=== PATIENT | female | born 1955 | race Caucasian/White ===

== ENCOUNTER 2018-02-04 21:19 | Inpatient (IN) | payer BC, SELFPAY ==
[2018-02-04 23:17] LABS: Troponin I Less than 0.010 ng/mL (< 0.028)
[2018-02-05] MEDS ORDERED: Ondansetron HCl/PF 4 MG/2 ML Vial IVP PRN (00:55)
[2018-02-05] MEDS ORDERED: Ondansetron ODT 4 MG TAB SL PRN (00:55)
[2018-02-05] MEDS ORDERED: Acetaminophen 325 MG TAB PO PRN ×2 (00:55→15:30)
[2018-02-05 01:26] VITALS: BMI 24.9
[2018-02-05 02:04] LABS: Troponin I Less than 0.010 ng/mL (< 0.028)
[2018-02-05] MEDS ORDERED: Fioricet 325/50/40 mg Tablet PO PRN (05:05)
[2018-02-05] MEDS ORDERED: Calcium Carbonate 500 MG ChewTAB PO PRN (15:30)
[2018-02-05] MEDS ORDERED: Senokot 8.6 MG TAB PO PRN (15:30)
[2018-02-05] MEDS ORDERED: Mag-Al 1200 mg/1200 mg/30 ML UDCUP PO PRN (15:30)
[2018-02-05] MEDS ORDERED: Nitroglycerin 0.4 MG TAB (25 Tab Bottle) PO PRN (15:33)
[2018-02-05] MEDS ORDERED: cloNIDine 0.1 MG TAB PO PRN (15:33)
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
[2018-02-05] MEDS: Budesonide 0.5 MG/2 ML NEB INH SCH (18:11)
[2018-02-05] MEDS: Docusate 100 MG CAP PO SCH (21:00)
[2018-02-05] MEDS: Famotidine 20 MG TAB PO SCH (21:00)
[2018-02-05] MEDS: Fioricet 325/50/40 mg Tablet PO PRN (21:21)
[2018-02-06 05:49] LABS: #Basophils 0.1 thou/uL (0.0-0.2); #Eosinphils 0.1 thou/uL (0.0-0.7); #Lymphocytes 1.2 thou/uL (1.20-3.40); #Neutrophils 6.6 thou/uL (1.40-6.50); %Basophils 1.3 % (0.0-1.0); %Eosinophils 1.4 % (0.0-10.0); %Lymphocytes 13.2 % (21.0-51.0); %Monocytes 10.7 % (0.0-10.0); %Neutrophils 73.4 % (42.0-75.0); Hemoglobin 13.8 g/dL (12.0-16.0); Mean Corpuscular HGB CONC 31.8 g/dL (32.0-36.0); Mean Corpuscular Hemoglobin 29.5 pg (27.0-31.0); Mean Corpuscular Volume 92.7 fL (78.0-98.0); Mean Platelet Volume 7.5 fL (7.4-10.4); Platelet Count 287 thou/uL (130-400); RBC Distribution Width 11.9 % (11.5-14.5); Red Blood Cell (RBC) Count 4.67 mill/uL (4.20-5.40)
[2018-02-06 05:59] LABS: ALT (SGPT) 24 U/L (8-55); AST (SGOT) 12 U/L (5-34); Albumin 3.6 g/dL (3.4-4.8); Alkaline Phosphatase 225 U/L (40-150); Anion Gap 12 mmol/L (10-20); BUN (Urea Nitrogen) 22 mg/dL (9.8-20.1); Bilirubin, Total 0.4 mg/dL (0.2-1.2); Calc. Creatinine Clearance 68 mL/min (70-130); Calcium 8.9 mg/dL (7.8-10.44); Carbon Dioxide 30 mmol/L (23-31); Chloride 100 mmol/L (98-107); Estimated GFR-MDRD 89; Globulin 2.5 g/dL (2.4-3.5); Glucose 108 mg/dL (80-115); Magnesium 1.8 mg/dL (1.6-2.6); Potassium 3.8 mmol/L (3.5-5.1); Protein, Total 6.1 g/dL (6.0-8.3); Sodium 138 mmol/L (136-145)
[2018-02-06] MEDS: Fioricet 325/50/40 mg Tablet PO PRN (06:20)
[2018-02-06] MEDS: Budesonide 0.5 MG/2 ML NEB INH SCH ×2 (06:29→18:56)
[2018-02-06] MEDS: Docusate 100 MG CAP PO SCH ×2 (08:33→20:46)
[2018-02-06] MEDS: Enoxaparin Sodium 40 MG/0.4 ML SYRINGE SC SCH (08:33)
[2018-02-06] MEDS: Famotidine 20 MG TAB PO SCH ×2 (08:35→20:46)
[2018-02-06] MEDS ORDERED: Aspirin 325 MG TAB PO SCH (09:00)
--- NOTE | 2018-02-06 12:51 | CON ---
DATE OF CONSULTATION: 02/06/2018 CONSULTING PHYSICIAN: Dr. Zuleta REASON FOR CONSULTATION: Hypoxemia. HISTORY OF PRESENT ILLNESS: Ms. Perdue is a 62-year-old who lives in [place]. 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 She began having extreme shortness of breath 2 days ago. She says that it was worse than her usual baseline shortness of breath. She was taken to the [facility] and was found to be hypoxic with room air O2 sats in the 70s. She was placed on 2 lit ers and subsequently brought to this facility. She denies any cough or congestion. She is originall y from [facility]. She was hospitalized there several years ago and told that she probably had [place] PD. She has been living in [place] for several years since then. She smoked heavily up until 3 years ago when she quit. She uses a Ventolin metered dose inhaler at home. She has no history of pulmonary fibrosis or pulmonary emboli. She does have significant neurofibroma tosis of the skin and she says she has been told she may have lung involvement in the past. PAST MEDICAL HISTORY: 1. Migraine headaches. 2. Neurofibromatosis. 3. Right breast cancer. 4. Cervical cancer. 5. Scoliosis with extensive chest deformity. PAST SURGICAL HISTORY: 1. Right breast lymph node dissection 2. Cholecystectomy. 3. Tubal ligation. 4. Cervical cancer surgery. ALLERGIES: PENICILLIN. MEDICATIONS PRIOR TO ADMISSION: Ventolin, Fioricet, Aleve, ibuprofen. SOCIAL HISTORY: Smoking history as outlined above. Does not smoke currently, does not use alcohol, does not use illicit drugs. She is . FAMILY MEDICAL HISTORY: Unknown as she is adopted. REVIEW OF SYSTEMS: Twelve point review of systems otherwise negative. PHYSICAL EXAMINATION: VITAL SIGNS: O2 sat was 93% on 1.5 liters, respirations 16, pulse 84, blood pressure 117/55, tempera ture 98.3. GENERAL: She is awake and alert, in no distress. SKIN: Remarkable for neurofibromas over almost every aspect of her skin. HEENT: Otherwise, unremarkable. NECK: Without adenopathy or JVD. CHEST: Chest has extensive scoliotic deformity. She has crackles in both bases of her lungs. CARDIOVASCULAR: S1, S2 regular, without murmur. ABDOMEN: Soft, nontender. EXTREMITIES: No clubbing, cyanosis, or edema. LABORATORY DATA: Sodium 138, potassium 3.8, chloride 100, CO2 30, BUN 22, creatinine 0.6, glucose 10 8, white blood cell count 9, hematocrit 43.3, platelet count 287. I reviewed her CT in detail. I do not see any evidence of pulmonary fibrosis. She does have some em physematous changes. She has 2 lymph nodes, 1 in the right peritracheal area, 1 in the right hilum b oth less than 2 cm in size. ASSESSMENT: 1. Hypoxemia with dyspnea - this is likely secondary to chronic obstructive pulmonary disease. 2. Nonspecific lymph node changes. 3. Neurofibromatosis. RECOMMENDATIONS: 1. Check room air blood gas to evaluate for chronic hypercapnia, especially given the elevation of h er bicarbonate level on her chemistry. 2. Pulmonary function tests. 3. Further recommendations to follow.
[2018-02-06 14:24] LABS: Actual Bicarbonate (HCO3a) 31.8 mEq/L (22-28); Analyzer IN Cardio OR; Base Excess (BEa) 5.3 mEq/L (-2.0 to +3.0); Calcium, Ionized 1.18 mmol/L (1.12-1.30); Carboxyhemoglobin (COHb) 1.7 gm% (0.0-3.0); Hemoglobin (Hb) 14.4 g/dL (12.0-16.0); pH, Arterial 7.39 (7.35-7.45)
[2018-02-06 14:32] LABS: O2 Tension (PaO2) 40.6 mmHg (> 80.0)
[2018-02-06 14:33] LABS: Puncture Site LRA
--- NOTE | 2018-02-06 19:44 | PDOC.PN ---
- Subjective Encounter Start Date: 02/06/18 Encounter Start Time: 13:30 Patient seen and examined for Resp failure. Feels better. No new complaints. No overnight events - Objective Resuscitation Status: Resuscitation Status FULL:Full Resuscitation MAR Reviewed: Yes Vital Signs & Weight: Vital Signs (12 hours) Temp Pulse Resp BP Pulse Ox 02/06/18 18:58 77 18 93 L 02/06/18 18:56 77 18 93 L 02/06/18 16:00 97.1 F L 78 16 125/64 95 02/06/18 14:22 88 20 78 L 02/06/18 12:00 97.8 F 88 16 107/56 L 95 02/06/18 10:39 84 16 94 L 02/06/18 08:00 98.3 F 77 16 117/55 L 100 Weight Weight 106 lb 3.2 oz I&O: 02/05/18 02/06/18 02/07/18 06:59 06:59 06:59 Intake Total 120 1363 860 Output Total 150 250 Balance -30 1113 860 Result Diagrams: 02/06/18 05:00 02/06/18 05:00 Additional Labs: Laboratory Tests 02/06/18 14:20 Bicarbonate Actual 31.8 H ABG pH 7.39 ABG pO2 40.6 L* ABG O2 Sat Calc/Lizandro 78.3 L* EKG Reviewed by me: Yes (Tele SR) Phys Exam - Physical Examination Constitutional: NAD Respiratory: no wheezing, no rhonchi Cardiovascular: RRR, no rub Gastrointestinal: soft, non-tender, positive bowel sounds Musculoskeletal: no edema Neurological: moves all 4 limbs Psychiatric: A&O x 3 Dx/Plan - Plan DVT proph w/lovenox, DVT proph w/SCDs IMPRESSION: 1. Acute hypoxic respiratory failure 2. COPD 3. 50-pack smoking history. 4. Hypertensive heart disease. 5. Right breast cancer, status post radiation. 6. Neurofibromatosis/Scoliosis/CKD 2 PLAN: Cont Nebs/O2 Home O2 setup Pulm input appreciated Cont Pulmicort Await Echo Cont ASA Transfer to Medical Review of Systems - Review of Systems Constitutional: negative: fever, chills, sweats, weakness, malaise, other Cardiovascular: negative: chest pain, palpitations, orthopnea, paroxysmal nocturnal dyspnea, edema, light headedness, other Gastrointestinal: negative: Nausea, Vomiting, Abdominal Pain, Diarrhea, Constipation, Melena, Hematochezia, Other - Medications/Allergies Allergies/Adverse Reactions: Allergies Allergy/AdvReac Type Severity Reaction Status Date / Time Penicillins Allergy Verified 02/05/18 01:17 Medications: Current Medications Acetaminophen (Tylenol) 650 mg PO Q4H PRN PRN Reason: Headache/Fever or Pain Acetaminophen/Butalbital/Caffeine (Fioricet) 1 tab PO Q4H PRN PRN Reason: Headache Stop: 02/10/18 15:38 Last Admin: 02/06/18 06:20 Dose: 1 tab Al Hydroxide/Mg Hydroxide (Maalox) 30 ml PO Q6H PRN PRN Reason: Heartburn or Indigestion Albuterol/Ipratropium (Duoneb) 3 ml NEB [id number] [facility] Last Admin: 02/06/18 18:58 Dose: 3 ml Albuterol/Ipratropium (Duoneb) 3 ml NEB [id number] PRN PRN Reason: SOB &/or Wheezing Aspirin (Aspirin) 325 mg PO DAILY [facility] Last Admin: 02/06/18 08:33 Dose: 325 mg Budesonide (Pulmicort Neb Solution) 0.5 mg INH BID-RT [facility] Last Admin: 02/06/18 18:56 Dose: 0.5 mg Calcium Carbonate (Tums) 1,000 mg PO Q4H PRN PRN Reason: Heartburn or Indigestion Clonidine (Catapres) 0.1 mg PO Q4H PRN PRN Reason: Systolic BP > 180 Docusate Sodium (Colace) 100 mg PO BID [facility] Last Admin: 02/06/18 08:33 Dose: 100 mg Enoxaparin Sodium (Lovenox) 40 mg SC 0900 [facility] Last Admin: 02/06/18 08:33 Dose: 40 mg Famotidine (Pepcid) 20 mg PO BID [facility] Last Admin: 02/06/18 08:35 Dose: 20 mg Nicotine (Nicoderm Patch) 7 mg TD Q24HR [facility] Nitroglycerin (Nitrostat) 0.4 mg PO Q5MIN PRN PRN Reason: Chest Pain Senna (Senokot) 2 tab PO HSPRN PRN PRN Reason: Constipation
[2018-02-06] MEDS: Nicotine 7 MG PATCH TD SCH (20:46)
[2018-02-07] MEDS: Fioricet 325/50/40 mg Tablet PO PRN ×2 (00:30→13:25)
[2018-02-07] MEDS: Budesonide 0.5 MG/2 ML NEB INH SCH (06:23)
[2018-02-07] MEDS ORDERED: Aspirin 81 mg Enteric Coated Tablet PO SCH (09:00)
--- NOTE | 2018-02-07 09:30 | PRG ---
DATE OF SERVICE: 02/07/2018 The patient is doing about the same. Her blood gas yesterday showed significant hypoxemia with a pO2 of 40.6 on room air. She is yet to have her PFT. PHYSICAL EXAMINATION: VITAL SIGNS: On exam today, temperature 98.5, pulse 76, respiration 16, O2 sat 97% on 1 liter, blood pressure 144/70. HEENT: Unremarkable. NECK: No JVD. LUNGS: Distant, but clear breath sounds. CARDIAC: S1 and S2 regular. ABDOMEN: Soft. EXTREMITIES: No edema. ASSESSMENT: 1. Chronic obstructive pulmonary disease with hypoxemia. 2. Neurofibromatosis. 3. Nonspecific mediastinal lymph node changes. PLAN: Await PFTs. These could be done as an outpatient if the patient is deemed a candidate for dis charge. She will need home O2. She needs to refrain from smoking. Her pulmonary medications at the time of discharge should include medication such as Symbicort and an albuterol/ipratropium inhaler a nd nebulization regimen.
[2018-02-07] MEDS: Famotidine 20 MG TAB PO SCH (09:53)
[2018-02-07] MEDS: Enoxaparin Sodium 40 MG/0.4 ML SYRINGE SC SCH (09:54)
[2018-02-07] MEDS: Docusate 100 MG CAP PO SCH (09:54)
[2018-02-07 16:14] VITALS: BP 128/88; TEMP 97.5
[2018-02-07] MEDS: Nicotine 7 MG PATCH TD SCH (17:07)
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
--- NOTE | 2018-02-08 08:00 | PQF ---
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 ROSEMARIE
--- NOTE | 2018-02-11 10:58 | PQF ---
[employer] Field Marketing Coordinator [employer] ViewerBRANDON JETER MALIK MD [id number] CLINICAL DOCUMENTATION CLARIFICATION FORM: POST DISCHARGE Addendum to original discharge summary date: ____ Late entry note date: __ Please exercise your independent, professional judgment in responding to the clarification form. Clinical indicators are provided on the bottom of this form for your review Please check appropriate box(s): HEART FAILURE: A. TYPE: [ ] Systolic / HFrEF [ x ] Diastolic / HFpEF [ ] Combined Systolic / Diastolic B. ACUITY [ ] Acute [ ] Acute on Chronic [ x ] Chronic [ ] Other diagnosis [ ] Unable to determine In addition, please specify: Present on Admission (POA): [ x ] Yes [ ] No [ ] Unable to determine For continuity of documentation, please document condition throughout progress notes and discharge summary. Thank You. CLINICAL INDICATORS - SIGNS / SYMPTOMS / LABS CXR results EJ FRACTION ESTIMATED GREATER THAN 65% WITH GRADE I/III DIASTOLIC DYSFUNCTION- D /S HYPOXEMIA HYPERTENSIVE HEART DISEASE- H&P, D/S, PN 02/06 RISKS: CKD Hypertension TREATMENTS: Oxygen [employer] Field Marketing Coordinator [employer] Viewer (This form is maintained as a part of the permanent medical record) 2014 [employer]. All Rights Reserved [email or web address] [phone] MTDD
== END 2018-02-07 18:00 | disposition home or self-care (01) | DRG 189 ==
LOC: ERS 21:19 → ERHOLD 22:10 → 2SW 02-05 00:50 → 2NO 02-05 13:48 → SURG A 02-05 19:26 → 2NO 02-05 19:32 → ONC 02-06 22:37
PROVIDERS: ADMIT Hospitalist; ATTEND Hospitalist
DX: J96.01 Acute respiratory failure with hypoxia (principal); J44.1 Chronic obstructive pulmonary disease with (acute) exacerbation; I13.0 Hypertensive heart and chronic kidney disease with heart failure and stage 1 through stage 4 chronic kidney disease, or unspecified chronic kidney disease; I50.32 Chronic diastolic (congestive) heart failure; M41.9 Scoliosis, unspecified; Q85.00 Neurofibromatosis, unspecified; J96.02 Acute respiratory failure with hypercapnia; J84.10 Pulmonary fibrosis, unspecified; M95.4 Acquired deformity of chest and rib; G43.909 Migraine, unspecified, not intractable, without status migrainosus; N18.2 Chronic kidney disease, stage 2 (mild); Z88.0 Allergy status to penicillin; Z87.891 Personal history of nicotine dependence; Z85.3 Personal history of malignant neoplasm of breast; Z85.41 Personal history of malignant neoplasm of cervix uteri
CPT/HCPCS: 36415; 80053; 82805; 83735; 84484; 85025; 93306; 94640; 94760; J1650; J2405; J7620; J7626

== ENCOUNTER 2018-02-12 13:57 | Emergency (ER) | payer BC ==
[2018-02-12 16:05] LABS: #Basophils 0.1 thou/uL (0.0-0.2); #Eosinphils 0.1 thou/uL (0.0-0.7); #Lymphocytes 1.2 thou/uL (1.20-3.40); #Monocytes 0.8 thou/uL (0.11-0.59); #Neutrophils 5.9 thou/uL (1.40-6.50); %Basophils 1.2 % (0.0-1.0); %Eosinophils 1.7 % (0.0-10.0); %Monocytes 9.5 % (0.0-10.0); %Neutrophils 72.6 % (42.0-75.0); Hemoglobin 14.5 g/dL (12.0-16.0); Mean Corpuscular HGB CONC 31.4 g/dL (32.0-36.0); Mean Corpuscular Hemoglobin 28.5 pg (27.0-31.0); Mean Corpuscular Volume 90.8 fL (78.0-98.0); Mean Platelet Volume 7.1 fL (7.4-10.4); Platelet Count 352 thou/uL (130-400); RBC Distribution Width 11.5 % (11.5-14.5); White Blood Cell (WBC) Count 8.2 thou/uL (4.8-10.8)
[2018-02-12 16:25] LABS: Anion Gap 11 mmol/L (10-20); BUN (Urea Nitrogen) 10 mg/dL (9.8-20.1); Calc. Creatinine Clearance 0 mL/min (70-130); Calcium 9.9 mg/dL (7.8-10.44); Carbon Dioxide 31 mmol/L (23-31); Chloride 102 mmol/L (98-107); Estimated GFR-MDRD 87; Glucose 93 mg/dL (80-115); Potassium 4.4 mmol/L (3.5-5.1); Sodium 140 mmol/L (136-145)
[2018-02-12 16:33] LABS: CKMB 0.5 ng/mL (0-6.6); Troponin I Less than 0.010 ng/mL (< 0.028)
[2018-02-12] MEDS ORDERED: methylPREDNISolone Sod Succ/PF 125 MG/2 ML VIAL ONE (16:45)
--- NOTE | 2018-02-12 16:49 | RAD ---
CHEST 1 VIEW: Date: 02/12/18 COMPARISON: 02/04/18. HISTORY: Dyspnea. FINDINGS: There are chronic changes in the lung parenchyma. There is stable curvature of the thoracic spine wit h resulting deformity of the bony thorax. No pleural effusion. No pneumothorax. IMPRESSION: No significant interval change. POS: [facility]
[2018-02-12] MEDS ORDERED: predniSONE 20 MG TAB ONE (16:56)
--- NOTE | 2018-02-13 17:07 | EKG ---
Test Reason : Blood Pressure : / mmHG Vent. Rate : 068 BPM Atrial Rate : 068 BPM P-R Int : 154 ms QRS Dur : 072 ms QT Int : 400 ms P-R-T Axes : 052 -19 013 degrees QTc Int : 425 ms Normal sinus rhythm Possible Left atrial enlargement Septal infarct , age undetermined Abnormal ECG Confirmed by GARRY MCGRAW, DR. Briggs ([id number]) on 02/13/2018 5:06:32 PM Referred By: Confirmed By:DR. Brigitte CASTAÑEDA MD
== END 2018-02-12 17:16 | disposition home or self-care (01) ==
LOC: ERS 13:57
DX: J44.1 Chronic obstructive pulmonary disease with (acute) exacerbation (principal); G43.909 Migraine, unspecified, not intractable, without status migrainosus; F41.9 Anxiety disorder, unspecified; F32.9 Major depressive disorder, single episode, unspecified; Z87.891 Personal history of nicotine dependence; Z79.899 Other long term (current) drug therapy
CPT/HCPCS: 36415; 71045; 80048; 82553; 83880; 84484; 85025; 93005; 94640; J2930; J7506; J7620

== ENCOUNTER 2018-12-17 12:49 | Outpatient (CLI) | payer BC ==
--- NOTE | 2018-12-17 14:20 | BD ---
Exam: DEXA Bone Density 12/17/18 HISTORY: Postmenopausal screening for osteoporosis. Lumbar Spine: BMD (g/cm2) T-SCORE Z-SCORE L1 0.460 -4.8 -3.3 L2 0.490 -4.9 -3.2 L3 0.509 -5.2 -3.5 L4 0.469 -5.4 -3.6 L1-L4 0.483 -5.1 -3.4 Femoral Neck: 0.446 -3.6 -2.2 Total Femur: 0.519 -3.5 -2.3 Impression: Osteoporosis. POS: OFF
== END 2018-12-17 12:50 | disposition home or self-care (01) ==
LOC: BICMAMMO 12:49
PROVIDERS: ATTEND Family Medicine
DX: Z13.820 Encounter for screening for osteoporosis (principal); M40.00 Postural kyphosis, site unspecified; Q85.00 Neurofibromatosis, unspecified; M81.0 Age-related osteoporosis without current pathological fracture
CPT/HCPCS: 77080

== ENCOUNTER 2020-12-28 10:45 | Outpatient (CLI) | payer MEDICARE | END 2020-12-28 10:46 | disposition home or self-care (01) | LOC: BICCT 10:45 | PROVIDERS: ATTEND Student in an Organized Health Care Education/Training Program | DX: R13.10 Dysphagia, unspecified (principal); M41.9 Scoliosis, unspecified; Q85.01 Neurofibromatosis, type 1; R59.0 Localized enlarged lymph nodes | CPT/HCPCS: 70491 ==

== ENCOUNTER 2021-01-03 13:17 | Outpatient (CLI) | payer MEDICARE | END 2021-01-03 13:18 | disposition home or self-care (01) | LOC: SCSRAD 13:17 | PROVIDERS: ATTEND Internal Medicine Critical Care Medicine | DX: R06.00 Dyspnea, unspecified (principal) | CPT/HCPCS: 71046 ==

== ENCOUNTER 2021-04-20 13:01 | Inpatient (IN) | payer MEDICARE ==
[2021-04-20 14:18] LABS: #Lymphocytes 0.4 thou/uL (1.20-3.40); #Monocytes 0.1 thou/uL (0.11-0.59); #Neutrophils 12.4 thou/uL (1.40-6.50); %Eosinophils 0.2 % (0.0-10.0); %Lymphocytes 3.4 % (21.0-51.0); %Monocytes 0.9 % (0.0-10.0); %Neutrophils 95.4 % (42.0-75.0); Hemoglobin 14.2 g/dL (12.0-16.0); Mean Corpuscular HGB CONC 31.6 g/dL (32.0-36.0); Mean Corpuscular Volume 94.8 fL (78.0-98.0); Mean Platelet Volume 7.7 fL (7.4-10.4); Platelet Count 268 thou/uL (130-400); RBC Distribution Width 12.3 % (11.5-14.5); Red Blood Cell (RBC) Count 4.75 mill/uL (4.20-5.40)
[2021-04-20 14:45] LABS: ALT (SGPT) 23 U/L (8-55); AST (SGOT) 19 U/L (5-34); Albumin 4.1 g/dL (3.4-4.8); Alkaline Phosphatase 166 U/L (40-110); Anion Gap 13 mmol/L (10-20); BUN (Urea Nitrogen) 12 mg/dL (9.8-20.1); Bilirubin, Total 0.6 mg/dL (0.2-1.2); Calc. Creatinine Clearance 0 mL/min (70-130); Calcium 9.7 mg/dL (7.8-10.44); Carbon Dioxide 31 mmol/L (23-31); Chloride 101 mmol/L (98-107); Globulin 2.8 g/dL (2.4-3.5); Glucose 108 mg/dL (80-115); Potassium 3.4 mmol/L (3.5-5.1); Protein, Total 6.9 g/dL (5.8-8.1); Sodium 142 mmol/L (136-145)
[2021-04-20] MEDS ORDERED: Acetaminophen 325 MG TAB PO PRN (17:02)
[2021-04-20 17:48] LABS: SARS-CoV-2 NAA Rapid Test Not Detected (NotDetected)
[2021-04-20 18:08] LABS: Troponin I 0.024 ng/mL (< 0.028)
[2021-04-20 20:56] LABS: Troponin I 0.019 ng/mL (< 0.028)
[2021-04-21 04:48] LABS: #Basophils 0.1 thou/uL (0.0-0.2); #Lymphocytes 1.1 thou/uL (1.20-3.40); #Neutrophils 5.7 thou/uL (1.40-6.50); %Basophils 0.6 % (0.0-1.0); %Eosinophils 0.1 % (0.0-10.0); %Lymphocytes 14.3 % (21.0-51.0); %Monocytes 12.8 % (0.0-10.0); %Neutrophils 72.2 % (42.0-75.0); Hemoglobin 13.1 g/dL (12.0-16.0); Mean Corpuscular HGB CONC 32.1 g/dL (32.0-36.0); Mean Corpuscular Hemoglobin 30.4 pg (27.0-31.0); Mean Corpuscular Volume 94.8 fL (78.0-98.0); Mean Platelet Volume 8.4 fL (7.4-10.4); Platelet Count 246 thou/uL (130-400); RBC Distribution Width 12.2 % (11.5-14.5); Red Blood Cell (RBC) Count 4.31 mill/uL (4.20-5.40); White Blood Cell (WBC) Count 7.9 thou/uL (4.8-10.8)
[2021-04-21 05:11] LABS: Anion Gap 13 mmol/L (10-20); BUN (Urea Nitrogen) 13 mg/dL (9.8-20.1); Calc. Creatinine Clearance 76 mL/min (70-130); Carbon Dioxide 28 mmol/L (23-31); Chloride 102 mmol/L (98-107); Glucose 100 mg/dL (80-115); Sodium 139 mmol/L (136-145)
[2021-04-21] MEDS: methylPREDNISolone Sod Succ 40 MG VIAL IVP SCH (08:39)
[2021-04-21] MEDS: Enoxaparin Sodium 40 MG/0.4 ML SYRINGE SC SCH (08:39)
[2021-04-21] MEDS: Azithromycin 500 MG in Sodium Chloride 0.9% 250 ML 250 ML IVPB SCH ×2 (08:47→17:59)
[2021-04-21] MEDS: cefTRIAXone\\ROCEPHIN 1 GM in Sodium Chloride 0.9% 100 ML IVPB SCH ×2 (08:47→17:17)
[2021-04-21] MEDS: Acetaminophen/Codeine 30-300mg Tablet PO PRN ×2 (09:17→17:17)
[2021-04-21] MEDS: Venlafaxine HCl XR 150 MG CAP PO SCH (09:30)
[2021-04-21] MEDS ORDERED: Furosemide 20 MG/2 ML VIAL SLOW IVP SCH (13:00)
[2021-04-21] MEDS ORDERED: Acetylcysteine 10% 100 MG/ML 30 ml Vial INH SCH (13:00)
[2021-04-21] MEDS ORDERED: Fioricet 325/50/40 mg Tablet PO PRN (15:40)
[2021-04-21] MEDS: Acetylcysteine 10% 100 MG/ML 30 ml Vial INH SCH (18:20)
[2021-04-21] MEDS: Mometasone 200 MCG/Formoterol 5 MCG 120 PUFF INHALER INH SCH (18:20)
[2021-04-22] MEDS: Acetaminophen/Codeine 30-300mg Tablet PO PRN ×3 (02:41→22:16)
[2021-04-22] MEDS: Mometasone 200 MCG/Formoterol 5 MCG 120 PUFF INHALER INH SCH ×2 (07:33→19:05)
[2021-04-22] MEDS: Acetylcysteine 10% 100 MG/ML 30 ml Vial INH SCH ×3 (07:33→22:50)
[2021-04-22 08:18] LABS: #Basophils 0.1 thou/uL (0.0-0.2); #Eosinphils 0.2 thou/uL (0.0-0.7); #Lymphocytes 1.4 thou/uL (1.20-3.40); #Monocytes 1.2 thou/uL (0.11-0.59); #Neutrophils 7.1 thou/uL (1.40-6.50); %Eosinophils 1.6 % (0.0-10.0); %Lymphocytes 14.3 % (21.0-51.0); %Monocytes 11.9 % (0.0-10.0); %Neutrophils 71.2 % (42.0-75.0); Hemoglobin 13.5 g/dL (12.0-16.0); Mean Corpuscular HGB CONC 31.3 g/dL (32.0-36.0); Mean Corpuscular Hemoglobin 30.1 pg (27.0-31.0); Mean Platelet Volume 7.8 fL (7.4-10.4); Platelet Count 257 thou/uL (130-400); RBC Distribution Width 12.1 % (11.5-14.5); Red Blood Cell (RBC) Count 4.49 mill/uL (4.20-5.40)
[2021-04-22 08:37] LABS: Anion Gap 11 mmol/L (10-20); BUN (Urea Nitrogen) 13 mg/dL (9.8-20.1); Calc. Creatinine Clearance 67 mL/min (70-130); Carbon Dioxide 32 mmol/L (23-31); Chloride 99 mmol/L (98-107); Glucose 102 mg/dL (80-115); Potassium 3.7 mmol/L (3.5-5.1); Sodium 138 mmol/L (136-145)
[2021-04-22] MEDS: Fioricet 325/50/40 mg Tablet PO SCH (09:21)
[2021-04-22] MEDS: Enoxaparin Sodium 40 MG/0.4 ML SYRINGE SC SCH (09:22)
[2021-04-22] MEDS: Multivit, Therapeutic 1 TAB PO SCH (09:23)
[2021-04-22] MEDS: Venlafaxine HCl XR 150 MG CAP PO SCH (09:23)
[2021-04-22] MEDS: methylPREDNISolone Sod Succ 40 MG VIAL IVP SCH (09:23)
[2021-04-22] MEDS ORDERED: Saccharomyces boulardii 250 MG CAP PO SCH (16:30)
[2021-04-22] MEDS: cefTRIAXone\\ROCEPHIN 1 GM in Sodium Chloride 0.9% 100 ML IVPB SCH (16:54)
[2021-04-22] MEDS: Azithromycin 500 MG in Sodium Chloride 0.9% 250 ML 250 ML IVPB SCH (18:09)
[2021-04-22] MEDS ORDERED: Fioricet 325/50/40 mg Tablet PO PRN (20:24)
[2021-04-22] MEDS: Saccharomyces boulardii 250 MG CAP PO SCH (20:44)
[2021-04-23 05:46] LABS: Anion Gap 13 mmol/L (10-20); BUN (Urea Nitrogen) 8 mg/dL (9.8-20.1); Calc. Creatinine Clearance 75 mL/min (70-130); Calcium 9.2 mg/dL (7.8-10.44); Carbon Dioxide 31 mmol/L (23-31); Chloride 101 mmol/L (98-107); Glucose 89 mg/dL (80-115); Potassium 3.7 mmol/L (3.5-5.1); Sodium 141 mmol/L (136-145)
[2021-04-23] MEDS ORDERED: GUAIFENESIN SF SOLN 200 MG/10 ML UDCUP PO PRN (07:39)
[2021-04-23] MEDS ORDERED: Sodium Chloride 0.65% Nasal 44 ML BOT EA NARE PRN (07:39)
[2021-04-23] MEDS ORDERED: Loperamide HCl 2 MG CAP PO PRN (07:39)
[2021-04-23] MEDS ORDERED: hydrALAZINE 20 MG/ML VIAL SLOW IVP PRN (07:39)
[2021-04-23] MEDS ORDERED: Senokot S 8.6-50 MG TAB PO PRN (07:39)
[2021-04-23] MEDS ORDERED: Loratadine 10 MG TAB PO PRN (07:39)
[2021-04-23] MEDS ORDERED: Bisacodyl 5 MG TAB PO PRN (07:39)
[2021-04-23] MEDS ORDERED: Cepastat Lozenges 1 LOZ PO PRN (07:39)
[2021-04-23] MEDS: Mometasone 200 MCG/Formoterol 5 MCG 120 PUFF INHALER INH SCH ×2 (07:58→19:15)
[2021-04-23] MEDS: Acetylcysteine 10% 100 MG/ML 30 ml Vial INH SCH (07:58)
[2021-04-23] MEDS: Multivit, Therapeutic 1 TAB PO SCH (08:56)
[2021-04-23] MEDS: methylPREDNISolone Sod Succ 40 MG VIAL IVP SCH ×2 (08:56→21:53)
[2021-04-23] MEDS: Fioricet 325/50/40 mg Tablet PO SCH (08:56)
[2021-04-23] MEDS: Saccharomyces boulardii 250 MG CAP PO SCH ×2 (08:56→21:03)
[2021-04-23] MEDS: Venlafaxine HCl XR 150 MG CAP PO SCH (08:56)
[2021-04-23] MEDS: Enoxaparin Sodium 40 MG/0.4 ML SYRINGE SC SCH (08:57)
[2021-04-23] MEDS: cefTRIAXone\\ROCEPHIN 1 GM in Sodium Chloride 0.9% 100 ML IVPB SCH (17:24)
[2021-04-23] MEDS: Azithromycin 500 MG in Sodium Chloride 0.9% 250 ML 250 ML IVPB SCH (17:27)
[2021-04-23] MEDS: Ondansetron PF 4 MG/2 ML Vial IVP PRN (19:14)
[2021-04-23] MEDS: Acetaminophen/Codeine 30-300mg Tablet PO PRN (21:05)
[2021-04-24 04:54] LABS: #Basophils 0.1 thou/uL (0.0-0.2); #Eosinphils 0.1 thou/uL (0.0-0.7); #Lymphocytes 1.7 thou/uL (1.20-3.40); #Monocytes 1.6 thou/uL (0.11-0.59); #Neutrophils 7.2 thou/uL (1.40-6.50); %Basophils 0.7 % (0.0-1.0); %Eosinophils 1.1 % (0.0-10.0); %Monocytes 14.9 % (0.0-10.0); %Neutrophils 67.4 % (42.0-75.0); Hemoglobin 14.4 g/dL (12.0-16.0); Mean Corpuscular HGB CONC 32.4 g/dL (32.0-36.0); Mean Corpuscular Hemoglobin 30.9 pg (27.0-31.0); Mean Corpuscular Volume 95.4 fL (78.0-98.0); Platelet Count 242 thou/uL (130-400); Red Blood Cell (RBC) Count 4.67 mill/uL (4.20-5.40); White Blood Cell (WBC) Count 10.7 thou/uL (4.8-10.8)
[2021-04-24 05:08] LABS: Anion Gap 14 mmol/L (10-20); BUN (Urea Nitrogen) 7 mg/dL (9.8-20.1); Calc. Creatinine Clearance 73 mL/min (70-130); Calcium 9.5 mg/dL (7.8-10.44); Carbon Dioxide 31 mmol/L (23-31); Chloride 99 mmol/L (98-107); Glucose 96 mg/dL (80-115); Magnesium 1.8 mg/dL (1.6-2.6); Potassium 3.5 mmol/L (3.5-5.1); Sodium 140 mmol/L (136-145)
[2021-04-24] MEDS: Mometasone 200 MCG/Formoterol 5 MCG 120 PUFF INHALER INH SCH ×2 (07:05→19:04)
[2021-04-24] MEDS: Enoxaparin Sodium 40 MG/0.4 ML SYRINGE SC SCH (09:11)
[2021-04-24] MEDS: Saccharomyces boulardii 250 MG CAP PO SCH ×2 (09:11→21:27)
[2021-04-24] MEDS: Multivit, Therapeutic 1 TAB PO SCH (09:11)
[2021-04-24] MEDS: methylPREDNISolone Sod Succ 40 MG VIAL IVP SCH (09:11)
[2021-04-24] MEDS: Fioricet 325/50/40 mg Tablet PO SCH (09:12)
[2021-04-24] MEDS: Venlafaxine HCl XR 150 MG CAP PO SCH (09:12)
[2021-04-24] MEDS: cefTRIAXone\\ROCEPHIN 1 GM in Sodium Chloride 0.9% 100 ML IVPB SCH (16:29)
[2021-04-24] MEDS: Ondansetron PF 4 MG/2 ML Vial IVP PRN (16:29)
[2021-04-24] MEDS: Azithromycin 500 MG in Sodium Chloride 0.9% 250 ML 250 ML IVPB SCH (18:12)
[2021-04-24] MEDS: HYDROcodone/Acetaminophen 5/325 mg Tablet PO PRN (21:29)
[2021-04-25] MEDS: Mometasone 200 MCG/Formoterol 5 MCG 120 PUFF INHALER INH SCH ×2 (07:12→18:30)
[2021-04-25] MEDS: Saccharomyces boulardii 250 MG CAP PO SCH ×2 (08:57→21:19)
[2021-04-25] MEDS: methylPREDNISolone Sod Succ 40 MG VIAL IVP SCH (08:57)
[2021-04-25] MEDS: Multivit, Therapeutic 1 TAB PO SCH (08:57)
[2021-04-25] MEDS: Venlafaxine HCl XR 150 MG CAP PO SCH (08:57)
[2021-04-25] MEDS: Enoxaparin Sodium 40 MG/0.4 ML SYRINGE SC SCH (08:57)
[2021-04-25] MEDS ORDERED: Furosemide 40 MG/4 ML VIAL SLOW IVP SCH ×2 (11:00→18:30)
[2021-04-25] MEDS: Fioricet 325/50/40 mg Tablet PO SCH (11:06)
[2021-04-25] MEDS: cefTRIAXone\\ROCEPHIN 1 GM in Sodium Chloride 0.9% 100 ML IVPB SCH (17:32)
[2021-04-25] MEDS: HYDROcodone/Acetaminophen 5/325 mg Tablet PO PRN (18:01)
[2021-04-25] MEDS: Ondansetron PF 4 MG/2 ML Vial IVP PRN (18:02)
[2021-04-25] MEDS: Azithromycin 500 MG in Sodium Chloride 0.9% 250 ML 250 ML IVPB SCH (18:02)
[2021-04-26] MEDS: Mometasone 200 MCG/Formoterol 5 MCG 120 PUFF INHALER INH SCH ×2 (07:08→18:25)
[2021-04-26 08:03] LABS: #Basophils 0.1 thou/uL (0.0-0.2); #Eosinphils 0.2 thou/uL (0.0-0.7); #Lymphocytes 1.3 thou/uL (1.20-3.40); #Monocytes 1.3 thou/uL (0.11-0.59); #Neutrophils 9.6 thou/uL (1.40-6.50); %Basophils 0.9 % (0.0-1.0); %Eosinophils 1.5 % (0.0-10.0); %Lymphocytes 10.6 % (21.0-51.0); %Monocytes 10.3 % (0.0-10.0); %Neutrophils 76.7 % (42.0-75.0); Hemoglobin 14.2 g/dL (12.0-16.0); Mean Corpuscular HGB CONC 31.8 g/dL (32.0-36.0); Mean Corpuscular Hemoglobin 30.7 pg (27.0-31.0); Mean Corpuscular Volume 96.5 fL (78.0-98.0); Mean Platelet Volume 7.9 fL (7.4-10.4); Platelet Count 266 thou/uL (130-400); Red Blood Cell (RBC) Count 4.64 mill/uL (4.20-5.40); White Blood Cell (WBC) Count 12.5 thou/uL (4.8-10.8)
[2021-04-26 08:17] LABS: BUN (Urea Nitrogen) 6 mg/dL (9.8-20.1); Calc. Creatinine Clearance 64 mL/min (70-130); Calcium 9.3 mg/dL (7.8-10.44); Glucose 103 mg/dL (80-115)
[2021-04-26 08:26] LABS: Anion Gap 16 mmol/L (10-20); Carbon Dioxide 37 mmol/L (23-31); Chloride 92 mmol/L (98-107); Potassium 3.6 mmol/L (3.5-5.1); Sodium 141 mmol/L (136-145)
[2021-04-26] MEDS: Multivit, Therapeutic 1 TAB PO SCH (09:45)
[2021-04-26] MEDS: Enoxaparin Sodium 40 MG/0.4 ML SYRINGE SC SCH (09:45)
[2021-04-26] MEDS: Venlafaxine HCl XR 150 MG CAP PO SCH (09:45)
[2021-04-26] MEDS: methylPREDNISolone Sod Succ 40 MG VIAL IVP SCH (09:47)
[2021-04-26] MEDS: Saccharomyces boulardii 250 MG CAP PO SCH ×2 (09:47→21:38)
[2021-04-26] MEDS: Fioricet 325/50/40 mg Tablet PO SCH (10:26)
[2021-04-26] MEDS ORDERED: Furosemide 40 MG/4 ML VIAL SLOW IVP SCH ×3 (11:00→20:00)
[2021-04-26] MEDS: cefTRIAXone\\ROCEPHIN 1 GM in Sodium Chloride 0.9% 100 ML IVPB SCH (18:15)
[2021-04-26] MEDS: HYDROcodone/Acetaminophen 5/325 mg Tablet PO PRN (21:37)
[2021-04-27 04:49] LABS: #Basophils 0.1 thou/uL (0.0-0.2); #Eosinphils 0.2 thou/uL (0.0-0.7); #Lymphocytes 1.9 thou/uL (1.20-3.40); #Monocytes 1.6 thou/uL (0.11-0.59); #Neutrophils 8.6 thou/uL (1.40-6.50); %Basophils 0.7 % (0.0-1.0); %Eosinophils 1.2 % (0.0-10.0); %Lymphocytes 15.1 % (21.0-51.0); %Monocytes 13.1 % (0.0-10.0); %Neutrophils 69.9 % (42.0-75.0); Hemoglobin 14.6 g/dL (12.0-16.0); Mean Corpuscular HGB CONC 32.2 g/dL (32.0-36.0); Mean Corpuscular Hemoglobin 31.1 pg (27.0-31.0); Mean Corpuscular Volume 96.3 fL (78.0-98.0); Mean Platelet Volume 7.7 fL (7.4-10.4); Platelet Count 269 thou/uL (130-400); RBC Distribution Width 11.7 % (11.5-14.5); Red Blood Cell (RBC) Count 4.72 mill/uL (4.20-5.40); White Blood Cell (WBC) Count 12.3 thou/uL (4.8-10.8)
[2021-04-27 05:11] LABS: BUN (Urea Nitrogen) 9 mg/dL (9.8-20.1); Calc. Creatinine Clearance 61 mL/min (70-130); Calcium 10.5 mg/dL (7.8-10.44); Glucose 122 mg/dL (80-115)
[2021-04-27 05:21] LABS: Chloride 85 mmol/L (98-107); Potassium 3.8 mmol/L (3.5-5.1); Sodium 138 mmol/L (136-145)
[2021-04-27 05:24] LABS: Anion Gap 15 mmol/L (10-20)
[2021-04-27 05:26] LABS: Carbon Dioxide 42 mmol/L (23-31)
[2021-04-27] MEDS: Mometasone 200 MCG/Formoterol 5 MCG 120 PUFF INHALER INH SCH ×2 (07:03→19:37)
[2021-04-27] MEDS: predniSONE 20 MG TAB PO SCH (08:41)
[2021-04-27] MEDS: Venlafaxine HCl XR 150 MG CAP PO SCH (08:42)
[2021-04-27] MEDS: Saccharomyces boulardii 250 MG CAP PO SCH ×2 (08:42→21:04)
[2021-04-27] MEDS: Multivit, Therapeutic 1 TAB PO SCH (08:42)
[2021-04-27] MEDS: Fioricet 325/50/40 mg Tablet PO SCH (08:43)
[2021-04-27] MEDS: Enoxaparin Sodium 40 MG/0.4 ML SYRINGE SC SCH (08:44)
[2021-04-27] MEDS: Furosemide 40 MG/4 ML VIAL SLOW IVP SCH ×2 (08:44→14:37)
[2021-04-27 09:28] LABS: Analyzer IN Cardio ER; Base Excess (BEa) 17.5 mEq/L (-2.0 to +3.0); Calcium, Ionized (arterial) 1.18 mmol/L (1.12-1.30); Carboxyhemoglobin (COHb) 0.7 gm% (0.0-3.0); Hemoglobin (Hb) 16.5 g/dL (12.0-16.0); Potassium - ABG Lab 3.94 mmol/L (3.70-5.30); pH, Arterial 7.42 (7.35-7.45)
[2021-04-27 09:30] LABS: CO2 Tension 74.3 mmHg (35.0-45.0); O2 Tension (PaO2), arterial 59.4 mmHg (> 80.0)
[2021-04-27 09:31] LABS: ALV-art Gradient 560.725 mmHg (0-20); Puncture Site LBA
[2021-04-27] MEDS: Acetaminophen/Codeine 30-300mg Tablet PO PRN (10:49)
[2021-04-27] MEDS: AcetaZOLAMIDE 250 MG TAB PO SCH (10:50)
[2021-04-27 11:03] VITALS: BMI 22.0
[2021-04-27] MEDS: HYDROcodone/Acetaminophen 5/325 mg Tablet PO PRN ×2 (14:36→21:04)
[2021-04-27] MEDS: cefTRIAXone\\ROCEPHIN 1 GM in Sodium Chloride 0.9% 100 ML IVPB SCH (17:10)
[2021-04-27] MEDS ORDERED: Furosemide 40 MG/4 ML VIAL SLOW IVP SCH (18:30)
[2021-04-28 05:10] LABS: Anion Gap 16 mmol/L (10-20); BUN (Urea Nitrogen) 13 mg/dL (9.8-20.1); Calc. Creatinine Clearance 51 mL/min (70-130); Calcium 10.7 mg/dL (7.8-10.44); Carbon Dioxide 35 mmol/L (23-31); Chloride 84 mmol/L (98-107); Glucose 128 mg/dL (80-115); Potassium 4.9 mmol/L (3.5-5.1); Sodium 130 mmol/L (136-145)
[2021-04-28] MEDS: Furosemide 40 MG/4 ML VIAL SLOW IVP SCH ×2 (05:17→11:30)
[2021-04-28 05:57] LABS: #Basophils 0.1 thou/uL (0.0-0.2); #Eosinphils 0.1 thou/uL (0.0-0.7); #Monocytes 1.2 thou/uL (0.11-0.59); #Neutrophils 11.8 thou/uL (1.40-6.50); %Basophils 0.5 % (0.0-1.0); %Eosinophils 0.4 % (0.0-10.0); %Lymphocytes 6.9 % (21.0-51.0); %Monocytes 8.5 % (0.0-10.0); %Neutrophils 83.7 % (42.0-75.0); Mean Corpuscular HGB CONC 31.3 g/dL (32.0-36.0); Mean Corpuscular Hemoglobin 29.3 pg (27.0-31.0); Mean Corpuscular Volume 93.7 fL (78.0-98.0); Mean Platelet Volume 8.1 fL (7.4-10.4); Platelet Count 313 thou/uL (130-400); RBC Distribution Width 11.8 % (11.5-14.5); Red Blood Cell (RBC) Count 5.79 mill/uL (4.20-5.40); White Blood Cell (WBC) Count 14.1 thou/uL (4.8-10.8)
[2021-04-28] MEDS: Mometasone 200 MCG/Formoterol 5 MCG 120 PUFF INHALER INH SCH ×2 (06:53→19:16)
[2021-04-28] MEDS: Saccharomyces boulardii 250 MG CAP PO SCH ×2 (09:42→21:11)
[2021-04-28] MEDS: AcetaZOLAMIDE 250 MG TAB PO SCH (09:42)
[2021-04-28] MEDS: Enoxaparin Sodium 40 MG/0.4 ML SYRINGE SC SCH (09:42)
[2021-04-28] MEDS: predniSONE 20 MG TAB PO SCH (09:42)
[2021-04-28] MEDS: Multivit, Therapeutic 1 TAB PO SCH (09:42)
[2021-04-28] MEDS: Venlafaxine HCl XR 150 MG CAP PO SCH (09:42)
[2021-04-28] MEDS: HYDROcodone/Acetaminophen 5/325 mg Tablet PO PRN ×2 (14:45→23:29)
[2021-04-28] MEDS: Senokot S 8.6-50 MG TAB PO SCH (21:11)
[2021-04-29 04:23] LABS: #Eosinphils 0.1 thou/uL (0.0-0.7); #Monocytes 1.5 thou/uL (0.11-0.59); #Neutrophils 12.7 thou/uL (1.40-6.50); %Basophils 0.3 % (0.0-1.0); %Eosinophils 0.5 % (0.0-10.0); %Lymphocytes 6.8 % (21.0-51.0); %Monocytes 9.8 % (0.0-10.0); %Neutrophils 82.7 % (42.0-75.0); Hemoglobin 17.7 g/dL (12.0-16.0); Mean Corpuscular HGB CONC 32.8 g/dL (32.0-36.0); Mean Corpuscular Hemoglobin 30.7 pg (27.0-31.0); Mean Corpuscular Volume 93.5 fL (78.0-98.0); Mean Platelet Volume 8.3 fL (7.4-10.4); Platelet Count 314 thou/uL (130-400); RBC Distribution Width 11.6 % (11.5-14.5); Red Blood Cell (RBC) Count 5.75 mill/uL (4.20-5.40); White Blood Cell (WBC) Count 15.4 thou/uL (4.8-10.8)
[2021-04-29 04:46] LABS: Anion Gap 14 mmol/L (10-20); BUN (Urea Nitrogen) 22 mg/dL (9.8-20.1); Calc. Creatinine Clearance 72 mL/min (70-130); Calcium 11.1 mg/dL (7.8-10.44); Carbon Dioxide 36 mmol/L (23-31); Chloride 83 mmol/L (98-107); Glucose 134 mg/dL (80-115); Potassium 4.2 mmol/L (3.5-5.1); Sodium 129 mmol/L (136-145)
[2021-04-29] MEDS ORDERED: Furosemide 40 MG/4 ML VIAL SLOW IVP SCH (06:00)
[2021-04-29] MEDS: Mometasone 200 MCG/Formoterol 5 MCG 120 PUFF INHALER INH SCH ×2 (07:05→18:49)
[2021-04-29] MEDS: predniSONE 20 MG TAB PO SCH (09:43)
[2021-04-29] MEDS: Senokot S 8.6-50 MG TAB PO SCH ×2 (09:44→20:32)
[2021-04-29] MEDS: Bisacodyl 5 MG TAB PO SCH (09:44)
[2021-04-29] MEDS: Venlafaxine HCl XR 150 MG CAP PO SCH (09:44)
[2021-04-29] MEDS: Saccharomyces boulardii 250 MG CAP PO SCH ×2 (09:44→20:32)
[2021-04-29] MEDS: AcetaZOLAMIDE 250 MG TAB PO SCH (09:44)
[2021-04-29] MEDS: Enoxaparin Sodium 40 MG/0.4 ML SYRINGE SC SCH (09:44)
[2021-04-29] MEDS: Multivit, Therapeutic 1 TAB PO SCH (09:44)
[2021-04-29] MEDS ORDERED: Iopamidol-370 76% 500 ML 1 ML ONE (10:08)
[2021-04-29] MEDS ORDERED: Fioricet 325/50/40 mg Tablet PO PRN (11:24)
[2021-04-29] MEDS: HYDROcodone/Acetaminophen 5/325 mg Tablet PO PRN (20:32)
[2021-04-29] MEDS: Ondansetron PF 4 MG/2 ML Vial IVP PRN (20:33)
[2021-04-30 04:43] LABS: #Basophils 0.1 thou/uL (0.0-0.2); #Eosinphils 0.2 thou/uL (0.0-0.7); #Lymphocytes 1.9 thou/uL (1.20-3.40); #Monocytes 2.2 thou/uL (0.11-0.59); #Neutrophils 12.8 thou/uL (1.40-6.50); %Basophils 0.6 % (0.0-1.0); %Lymphocytes 10.9 % (21.0-51.0); %Monocytes 12.7 % (0.0-10.0); %Neutrophils 74.8 % (42.0-75.0); Mean Corpuscular HGB CONC 33.3 g/dL (32.0-36.0); Mean Corpuscular Hemoglobin 30.6 pg (27.0-31.0); Mean Corpuscular Volume 91.9 fL (78.0-98.0); Mean Platelet Volume 8.4 fL (7.4-10.4); Platelet Count 300 thou/uL (130-400); RBC Distribution Width 11.5 % (11.5-14.5); Red Blood Cell (RBC) Count 5.55 mill/uL (4.20-5.40); White Blood Cell (WBC) Count 17.1 thou/uL (4.8-10.8)
[2021-04-30 05:07] LABS: Anion Gap 15 mmol/L (10-20); BUN (Urea Nitrogen) 19 mg/dL (9.8-20.1); Calc. Creatinine Clearance 55 mL/min (70-130); Calcium 10.3 mg/dL (7.8-10.44); Carbon Dioxide 31 mmol/L (23-31); Chloride 83 mmol/L (98-107); Glucose 105 mg/dL (80-115); Potassium 3.7 mmol/L (3.5-5.1); Sodium 125 mmol/L (136-145)
[2021-04-30] MEDS: Mometasone 200 MCG/Formoterol 5 MCG 120 PUFF INHALER INH SCH ×2 (07:31→19:25)
[2021-04-30] MEDS: AcetaZOLAMIDE 250 MG TAB PO SCH (08:44)
[2021-04-30] MEDS: Bisacodyl 5 MG TAB PO SCH (08:44)
[2021-04-30] MEDS: Venlafaxine HCl XR 150 MG CAP PO SCH (08:44)
[2021-04-30] MEDS: Senokot S 8.6-50 MG TAB PO SCH ×2 (08:44→20:20)
[2021-04-30] MEDS: predniSONE 20 MG TAB PO SCH (08:44)
[2021-04-30] MEDS: Saccharomyces boulardii 250 MG CAP PO SCH ×2 (08:44→20:21)
[2021-04-30] MEDS: Multivit, Therapeutic 1 TAB PO SCH (08:44)
[2021-04-30] MEDS: Enoxaparin Sodium 40 MG/0.4 ML SYRINGE SC SCH (08:45)
[2021-04-30] MEDS ORDERED: Morphine IR Tab 15 MG TAB PO PRN (18:39)
[2021-04-30] MEDS: HYDROcodone/Acetaminophen 5/325 mg Tablet PO PRN (20:22)
[2021-05-01 05:04] LABS: #Basophils 0.1 thou/uL (0.0-0.2); #Eosinphils 0.1 thou/uL (0.0-0.7); #Lymphocytes 1.8 thou/uL (1.20-3.40); #Neutrophils 11.4 thou/uL (1.40-6.50); %Basophils 0.9 % (0.0-1.0); %Eosinophils 0.7 % (0.0-10.0); %Lymphocytes 11.7 % (21.0-51.0); %Monocytes 13.1 % (0.0-10.0); %Neutrophils 73.6 % (42.0-75.0); Hemoglobin 16.7 g/dL (12.0-16.0); Mean Corpuscular Volume 91.1 fL (78.0-98.0); Mean Platelet Volume 8.2 fL (7.4-10.4); Platelet Count 298 thou/uL (130-400); RBC Distribution Width 11.6 % (11.5-14.5); Red Blood Cell (RBC) Count 5.38 mill/uL (4.20-5.40); White Blood Cell (WBC) Count 15.4 thou/uL (4.8-10.8)
[2021-05-01 05:22] LABS: Anion Gap 11 mmol/L (10-20); BUN (Urea Nitrogen) 16 mg/dL (9.8-20.1); Calc. Creatinine Clearance 63 mL/min (70-130); Calcium 9.6 mg/dL (7.8-10.44); Carbon Dioxide 28 mmol/L (23-31); Chloride 87 mmol/L (98-107); Glucose 112 mg/dL (80-115); Potassium 3.3 mmol/L (3.5-5.1); Sodium 123 mmol/L (136-145)
[2021-05-01] MEDS: Mometasone 200 MCG/Formoterol 5 MCG 120 PUFF INHALER INH SCH ×2 (07:05→19:00)
[2021-05-01] MEDS: Heparin 5,000 UNITS/ML VIAL SC SCH ×2 (09:00→20:51)
[2021-05-01] MEDS: Bisacodyl 5 MG TAB PO SCH (09:00)
[2021-05-01] MEDS: Senokot S 8.6-50 MG TAB PO SCH ×2 (09:01→20:51)
[2021-05-01] MEDS: Venlafaxine HCl XR 150 MG CAP PO SCH (09:01)
[2021-05-01] MEDS: Saccharomyces boulardii 250 MG CAP PO SCH ×2 (09:01→20:51)
[2021-05-01] MEDS: Multivit, Therapeutic 1 TAB PO SCH (09:01)
[2021-05-01] MEDS: predniSONE 20 MG TAB PO SCH (09:01)
[2021-05-01] MEDS: HYDROcodone/Acetaminophen 5/325 mg Tablet PO PRN (16:41)
[2021-05-01] MEDS: Ondansetron PF 4 MG/2 ML Vial IVP PRN (16:43)
[2021-05-02 04:29] LABS: #Eosinphils 0.1 thou/uL (0.0-0.7); #Lymphocytes 1.1 thou/uL (1.20-3.40); #Monocytes 1.8 thou/uL (0.11-0.59); #Neutrophils 12.3 thou/uL (1.40-6.50); %Basophils 0.2 % (0.0-1.0); %Eosinophils 0.6 % (0.0-10.0); %Lymphocytes 7.5 % (21.0-51.0); %Monocytes 11.8 % (0.0-10.0); Hemoglobin 16.8 g/dL (12.0-16.0); Mean Corpuscular HGB CONC 34.1 g/dL (32.0-36.0); Mean Corpuscular Hemoglobin 30.8 pg (27.0-31.0); Mean Corpuscular Volume 90.1 fL (78.0-98.0); Mean Platelet Volume 8.6 fL (7.4-10.4); Platelet Count 264 thou/uL (130-400); RBC Distribution Width 11.4 % (11.5-14.5); Red Blood Cell (RBC) Count 5.46 mill/uL (4.20-5.40); White Blood Cell (WBC) Count 15.3 thou/uL (4.8-10.8)
[2021-05-02 04:53] LABS: Anion Gap 14 mmol/L (10-20); BUN (Urea Nitrogen) 15 mg/dL (9.8-20.1); Calc. Creatinine Clearance 57 mL/min (70-130); Calcium 9.6 mg/dL (7.8-10.44); Carbon Dioxide 26 mmol/L (23-31); Chloride 88 mmol/L (98-107); Glucose 156 mg/dL (80-115); Potassium 3.1 mmol/L (3.5-5.1); Sodium 125 mmol/L (136-145)
[2021-05-02] MEDS: Mometasone 200 MCG/Formoterol 5 MCG 120 PUFF INHALER INH SCH (07:37)
[2021-05-02] MEDS ORDERED: predniSONE 20 MG TAB PO SCH (08:00)
[2021-05-02] MEDS ORDERED: Potassium Chloride 20 MEQ TAB PO SCH (09:00)
[2021-05-02] MEDS: Senokot S 8.6-50 MG TAB PO SCH (09:16)
[2021-05-02] MEDS: Saccharomyces boulardii 250 MG CAP PO SCH (09:16)
[2021-05-02] MEDS: Bisacodyl 5 MG TAB PO SCH (09:16)
[2021-05-02] MEDS: Venlafaxine HCl XR 150 MG CAP PO SCH (09:16)
[2021-05-02] MEDS: Multivit, Therapeutic 1 TAB PO SCH (09:17)
[2021-05-02] MEDS: Heparin 5,000 UNITS/ML VIAL SC SCH (09:17)
[2021-05-02 15:36] VITALS: BP 130/88; TEMP 97.5
== END 2021-05-02 18:36 | disposition home health service (06) | DRG 314 ==
LOC: ERS 13:01 → ERHOLD 16:02 → 2NO 20:58
PROVIDERS: ADMIT Internal Medicine; ATTEND Internal Medicine
PROC: 5A09357 Assistance with Respiratory Ventilation, Less than 24 Consecutive Hours, Continuous Positive Airway Pressure (ICD-10-PCS; principal; 2021-04-30)
DX: I27.23 Pulmonary hypertension due to lung diseases and hypoxia (principal); Z20.822 Contact with and (suspected) exposure to COVID-19; J96.21 Acute and chronic respiratory failure with hypoxia; E43 Unspecified severe protein-calorie malnutrition; I50.33 Acute on chronic diastolic (congestive) heart failure; J18.9 Pneumonia, unspecified organism; J96.22 Acute and chronic respiratory failure with hypercapnia; J44.1 Chronic obstructive pulmonary disease with (acute) exacerbation; E87.1 Hypo-osmolality and hyponatremia; J84.9 Interstitial pulmonary disease, unspecified; J44.0 Chronic obstructive pulmonary disease with (acute) lower respiratory infection; E87.3 Alkalosis; I11.0 Hypertensive heart disease with heart failure; F41.9 Anxiety disorder, unspecified; F32.A Depression, unspecified; R13.10 Dysphagia, unspecified; M41.9 Scoliosis, unspecified; E78.5 Hyperlipidemia, unspecified; T50.2X5A Adverse effect of carbonic-anhydrase inhibitors, benzothiadiazides and other diuretics, initial encounter; Q85.00 Neurofibromatosis, unspecified; Z90.49 Acquired absence of other specified parts of digestive tract; Z87.891 Personal history of nicotine dependence; Z99.81 Dependence on supplemental oxygen; Z88.0 Allergy status to penicillin; Z79.899 Other long term (current) drug therapy; Z79.51 Long term (current) use of inhaled steroids; Z79.52 Long term (current) use of systemic steroids; Z85.3 Personal history of malignant neoplasm of breast; Z68.20 Body mass index [BMI] 20.0-20.9, adult; Z98.51 Tubal ligation status; Z90.10 Acquired absence of unspecified breast and nipple; Z85.41 Personal history of malignant neoplasm of cervix uteri
CPT/HCPCS: 36415; 36600; 71045; 71275; 80048; 80053; 82805; 83735; 83880; 84100; 84484; 85025; 85379; 93005; 93306; 93970; 94640; J0456; J0696; J1644; J1650; J1940; J2405; J2920; J3490; J7050; J7512; J7608; J7620; Q9967; U0002

== ENCOUNTER 2021-05-17 13:10 | Inpatient (IN) | payer MEDICARE ==
[2021-05-17 14:01] LABS: Hemoglobin 14.6 g/dL (12.0-16.0); Mean Corpuscular HGB CONC 31.9 g/dL (32.0-36.0); Mean Corpuscular Hemoglobin 30.8 pg (27.0-31.0); Mean Corpuscular Volume 96.3 fL (78.0-98.0); Mean Platelet Volume 7.7 fL (7.4-10.4); Platelet Count 248 thou/uL (130-400); RBC Distribution Width 11.7 % (11.5-14.5); Red Blood Cell (RBC) Count 4.73 mill/uL (4.20-5.40); White Blood Cell (WBC) Count 24.5 thou/uL (4.8-10.8)
[2021-05-17 14:17] LABS: Band 7 % (5-11); Lymphocytes 2 % (21-51); MDiff Complete? YES; Monocytes 1 % (0-10); Neutrophil 90 % (42-75); Platelet Morphology Comment Appears Adequate; RBC Morphology Normal
[2021-05-17 14:25] LABS: ALT (SGPT) 18 U/L (8-55); AST (SGOT) 22 U/L (5-34); Albumin 3.7 g/dL (3.4-4.8); Alkaline Phosphatase 118 U/L (40-110); Anion Gap 14 mmol/L (10-20); BUN (Urea Nitrogen) 9 mg/dL (9.8-20.1); Bilirubin, Total 0.6 mg/dL (0.2-1.2); Calc. Creatinine Clearance 0 mL/min (70-130); Calcium 8.9 mg/dL (7.8-10.44); Carbon Dioxide 31 mmol/L (23-31); Chloride 98 mmol/L (98-107); Globulin 2.7 g/dL (2.4-3.5); Glucose 104 mg/dL (80-115); Lipase Less than 4 U/L (8-78); Potassium 3.6 mmol/L (3.5-5.1); Protein, Total 6.4 g/dL (5.8-8.1); Sodium 139 mmol/L (136-145)
[2021-05-17 14:42] LABS: Analyzer IN Cardio ER; Calcium, Ionized (venous) 1.05 mmol/L (1.16-1.32); Chloride (VBG) 96 mmol/L (98-106); Hemoglobin (Hb) 15.6 g/dL (11.7-16.1); Potassium (VBG) 3.09 mmol/L (3.70-5.30); Sodium 138.9 mmol/L (133-146); pH (venous) 7.35 (7.32-7.43)
[2021-05-17 14:44] LABS: Actual Bicarbonate (HCO3v) 33 mEq/L (22-28)
[2021-05-17] MEDS ORDERED: Azithromycin 500 MG VIAL ONE (14:57)
[2021-05-17] MEDS ORDERED: cefTRIAXone\\ROCEPHIN 2 GM VIAL ONE (14:57)
[2021-05-17] MEDS ORDERED: Metoclopramide HCl 10 MG/2 ML VIAL ONE (15:55)
[2021-05-17] MEDS ORDERED: diphenhydrAMINE 50 MG/ML VIAL ONE (15:55)
[2021-05-17 15:59] LABS: SARS-CoV-2 NAA Rapid Test Not Detected (NotDetected)
[2021-05-17] MEDS ORDERED: Acetaminophen 325 MG TAB PO PRN (17:36)
[2021-05-17] MEDS ORDERED: Ondansetron PF 4 MG/2 ML Vial IVP PRN (17:36)
[2021-05-17] MEDS ORDERED: Artificial Tear Sol 15 ML BOT EA EYE PRN (17:48)
[2021-05-17] MEDS ORDERED: Fioricet 325/50/40 mg Tablet PO PRN (17:48)
[2021-05-17] MEDS ORDERED: methylPREDNISolone Sod Succ 40 MG VIAL ONE (18:50)
[2021-05-17] MEDS: methylPREDNISolone Sod Succ/PF 125 MG/2 ML VIAL IVP SCH ×2 (18:55→23:51)
[2021-05-17] MEDS: Budesonide 0.5 MG/2 ML NEB NEB SCH (22:15)
[2021-05-17] MEDS: Arformoterol 15 MCG/2 ML NEB NEB SCH (22:15)
[2021-05-18 04:32] LABS: #Lymphocytes 0.4 thou/uL (1.20-3.40); #Monocytes 0.1 thou/uL (0.11-0.59); #Neutrophils 5.8 thou/uL (1.40-6.50); %Basophils 0.5 % (0.0-1.0); %Eosinophils 0.1 % (0.0-10.0); %Monocytes 1.8 % (0.0-10.0); %Neutrophils 91.7 % (42.0-75.0); Mean Corpuscular HGB CONC 32.2 g/dL (32.0-36.0); Mean Corpuscular Hemoglobin 30.4 pg (27.0-31.0); Mean Corpuscular Volume 94.4 fL (78.0-98.0); Mean Platelet Volume 7.6 fL (7.4-10.4); Platelet Count 235 thou/uL (130-400); RBC Distribution Width 11.6 % (11.5-14.5); Red Blood Cell (RBC) Count 4.61 mill/uL (4.20-5.40); White Blood Cell (WBC) Count 6.4 thou/uL (4.8-10.8)
[2021-05-18 04:52] LABS: Anion Gap 12 mmol/L (10-20); BUN (Urea Nitrogen) 11 mg/dL (9.8-20.1); Calc. Creatinine Clearance 79 mL/min (70-130); Calcium 9.1 mg/dL (7.8-10.44); Carbon Dioxide 32 mmol/L (23-31); Chloride 99 mmol/L (98-107); Glucose 125 mg/dL (80-115); Potassium 4.4 mmol/L (3.5-5.1); Sodium 139 mmol/L (136-145)
[2021-05-18] MEDS: Furosemide 20 MG/2 ML VIAL SLOW IVP SCH ×2 (06:27→12:46)
[2021-05-18] MEDS: methylPREDNISolone Sod Succ/PF 125 MG/2 ML VIAL IVP SCH ×2 (06:27→12:40)
[2021-05-18] MEDS: Arformoterol 15 MCG/2 ML NEB NEB SCH ×2 (07:22→18:50)
[2021-05-18] MEDS: Budesonide 0.5 MG/2 ML NEB NEB SCH ×2 (07:22→18:50)
[2021-05-18] MEDS: Enoxaparin Sodium 40 MG/0.4 ML SYRINGE SC SCH (09:55)
[2021-05-18] MEDS: Venlafaxine HCl XR 150 MG CAP PO SCH (09:55)
[2021-05-18] MEDS: Saccharomyces boulardii 250 MG CAP PO SCH (09:55)
[2021-05-18] MEDS: cefTRIAXone\\ROCEPHIN 2 GM in Sodium Chloride 0.9% 100 ML IVPB SCH (15:37)
[2021-05-18] MEDS ORDERED: Azithromycin 500 MG in Sodium Chloride 0.9% 250 ML 250 ML IVPB SCH (16:00)
[2021-05-18] MEDS: methylPREDNISolone Sod Succ 40 MG VIAL IVP SCH (22:11)
[2021-05-18] MEDS: Doxycycline 100 MG CAP PO SCH (22:11)
[2021-05-19] MEDS ORDERED: Acetaminophen/Codeine 30-300mg Tablet PO SCH (01:30)
[2021-05-19] MEDS: Furosemide 20 MG/2 ML VIAL SLOW IVP SCH ×2 (06:47→14:29)
[2021-05-19] MEDS: Arformoterol 15 MCG/2 ML NEB NEB SCH ×2 (06:52→19:53)
[2021-05-19] MEDS: Budesonide 0.5 MG/2 ML NEB NEB SCH ×2 (06:52→19:53)
[2021-05-19] MEDS: Venlafaxine HCl XR 150 MG CAP PO SCH (08:43)
[2021-05-19] MEDS: Saccharomyces boulardii 250 MG CAP PO SCH (08:43)
[2021-05-19] MEDS: Enoxaparin Sodium 40 MG/0.4 ML SYRINGE SC SCH (08:43)
[2021-05-19] MEDS: methylPREDNISolone Sod Succ 40 MG VIAL IVP SCH (08:43)
[2021-05-19] MEDS: Doxycycline 100 MG CAP PO SCH ×2 (08:43→20:35)
[2021-05-19] MEDS: Acetaminophen/Codeine 30-300mg Tablet PO PRN ×3 (09:51→23:49)
[2021-05-19 10:42] LABS: Actual Bicarbonate (HCO3a) 35.1 mEq/L (22-28); Base Excess (BEa) 9.6 mEq/L (-2.0 to +3.0); CO2 Tension 50.9 mmHg (35.0-45.0); Calcium, Ionized (arterial) 1.11 mmol/L (1.12-1.30); Carboxyhemoglobin (COHb) 0.5 gm% (0.0-3.0); Potassium - ABG Lab 3.57 mmol/L (3.70-5.30); pH, Arterial 7.46 (7.35-7.45)
[2021-05-19 10:49] LABS: O2 Tension (PaO2), arterial 52.2 mmHg (> 80.0); Puncture Site LRA
[2021-05-19] MEDS: cefTRIAXone\\ROCEPHIN 2 GM in Sodium Chloride 0.9% 100 ML IVPB SCH (14:29)
[2021-05-20] MEDS: Furosemide 20 MG/2 ML VIAL SLOW IVP SCH ×2 (05:35→14:36)
[2021-05-20] MEDS: Budesonide 0.5 MG/2 ML NEB NEB SCH ×2 (07:53→19:21)
[2021-05-20] MEDS: Arformoterol 15 MCG/2 ML NEB NEB SCH ×2 (07:53→19:21)
[2021-05-20] MEDS: Doxycycline 100 MG CAP PO SCH ×2 (08:27→21:07)
[2021-05-20] MEDS: Enoxaparin Sodium 40 MG/0.4 ML SYRINGE SC SCH (08:27)
[2021-05-20] MEDS: Acetaminophen/Codeine 30-300mg Tablet PO PRN (08:27)
[2021-05-20] MEDS: methylPREDNISolone Sod Succ 40 MG VIAL IVP SCH (08:28)
[2021-05-20] MEDS: Saccharomyces boulardii 250 MG CAP PO SCH (08:28)
[2021-05-20] MEDS: Venlafaxine HCl XR 150 MG CAP PO SCH (08:28)
[2021-05-20 13:14] LABS: #Lymphocytes 0.4 thou/uL (1.20-3.40); #Monocytes 0.1 thou/uL (0.11-0.59); #Neutrophils 14.9 thou/uL (1.40-6.50); %Basophils 0.1 % (0.0-1.0); %Eosinophils 0.1 % (0.0-10.0); %Lymphocytes 2.3 % (21.0-51.0); %Monocytes 0.7 % (0.0-10.0); %Neutrophils 96.7 % (42.0-75.0); Hemoglobin 14.5 g/dL (12.0-16.0); Mean Corpuscular Hemoglobin 31.3 pg (27.0-31.0); Mean Corpuscular Volume 94.9 fL (78.0-98.0); Mean Platelet Volume 7.9 fL (7.4-10.4); Platelet Count 238 thou/uL (130-400); RBC Distribution Width 11.7 % (11.5-14.5); Red Blood Cell (RBC) Count 4.64 mill/uL (4.20-5.40); White Blood Cell (WBC) Count 15.4 thou/uL (4.8-10.8)
[2021-05-20 13:30] LABS: Anion Gap 12 mmol/L (10-20); BUN (Urea Nitrogen) 12 mg/dL (9.8-20.1); Calc. Creatinine Clearance 65 mL/min (70-130); Calcium 9.2 mg/dL (7.8-10.44); Carbon Dioxide 37 mmol/L (23-31); Chloride 90 mmol/L (98-107); Glucose 191 mg/dL (80-115); Potassium 3.9 mmol/L (3.5-5.1); Sodium 135 mmol/L (136-145)
[2021-05-20] MEDS: cefTRIAXone\\ROCEPHIN 2 GM in Sodium Chloride 0.9% 100 ML IVPB SCH (14:36)
[2021-05-21] MEDS: Acetaminophen/Codeine 30-300mg Tablet PO PRN ×2 (01:15→11:07)
[2021-05-21 03:48] LABS: #Basophils 0.1 thou/uL (0.0-0.2); #Eosinphils 0.2 thou/uL (0.0-0.7); #Lymphocytes 1.7 thou/uL (1.20-3.40); #Monocytes 1.6 thou/uL (0.11-0.59); #Neutrophils 9.4 thou/uL (1.40-6.50); %Basophils 0.6 % (0.0-1.0); %Eosinophils 1.3 % (0.0-10.0); %Lymphocytes 13.3 % (21.0-51.0); %Monocytes 12.5 % (0.0-10.0); %Neutrophils 72.2 % (42.0-75.0); Hemoglobin 13.7 g/dL (12.0-16.0); Mean Corpuscular HGB CONC 32.1 g/dL (32.0-36.0); Mean Corpuscular Hemoglobin 30.4 pg (27.0-31.0); Mean Corpuscular Volume 94.7 fL (78.0-98.0); Mean Platelet Volume 8.1 fL (7.4-10.4); Platelet Count 215 thou/uL (130-400); RBC Distribution Width 11.5 % (11.5-14.5); White Blood Cell (WBC) Count 13.1 thou/uL (4.8-10.8)
[2021-05-21 04:08] LABS: Anion Gap 10 mmol/L (10-20); BUN (Urea Nitrogen) 12 mg/dL (9.8-20.1); Calc. Creatinine Clearance 74 mL/min (70-130); Calcium 9.3 mg/dL (7.8-10.44); Carbon Dioxide 37 mmol/L (23-31); Chloride 91 mmol/L (98-107); Glucose 97 mg/dL (80-115); Potassium 3.9 mmol/L (3.5-5.1); Sodium 134 mmol/L (136-145)
[2021-05-21] MEDS: Furosemide 20 MG/2 ML VIAL SLOW IVP SCH ×2 (06:28→16:08)
[2021-05-21] MEDS: Arformoterol 15 MCG/2 ML NEB NEB SCH ×2 (07:17→18:54)
[2021-05-21] MEDS: Budesonide 0.5 MG/2 ML NEB NEB SCH ×2 (07:18→18:53)
[2021-05-21] MEDS: Doxycycline 100 MG CAP PO SCH ×2 (09:07→22:24)
[2021-05-21] MEDS: Saccharomyces boulardii 250 MG CAP PO SCH (09:07)
[2021-05-21] MEDS: Venlafaxine HCl XR 150 MG CAP PO SCH (09:07)
[2021-05-21] MEDS: methylPREDNISolone Sod Succ 40 MG VIAL IVP SCH (09:07)
[2021-05-21] MEDS: Enoxaparin Sodium 40 MG/0.4 ML SYRINGE SC SCH (09:07)
[2021-05-21] MEDS: cefTRIAXone\\ROCEPHIN 2 GM in Sodium Chloride 0.9% 100 ML IVPB SCH (16:08)
[2021-05-22 03:45] LABS: #Basophils 0.1 thou/uL (0.0-0.2); #Eosinphils 0.2 thou/uL (0.0-0.7); #Lymphocytes 2.1 thou/uL (1.20-3.40); #Monocytes 1.4 thou/uL (0.11-0.59); #Neutrophils 8.7 thou/uL (1.40-6.50); %Basophils 0.6 % (0.0-1.0); %Eosinophils 1.7 % (0.0-10.0); %Lymphocytes 16.7 % (21.0-51.0); Hemoglobin 14.8 g/dL (12.0-16.0); Mean Corpuscular HGB CONC 33.2 g/dL (32.0-36.0); Mean Corpuscular Hemoglobin 30.9 pg (27.0-31.0); Mean Corpuscular Volume 93.1 fL (78.0-98.0); Platelet Count 223 thou/uL (130-400); RBC Distribution Width 11.7 % (11.5-14.5); Red Blood Cell (RBC) Count 4.77 mill/uL (4.20-5.40); White Blood Cell (WBC) Count 12.4 thou/uL (4.8-10.8)
[2021-05-22 04:04] LABS: Anion Gap 12 mmol/L (10-20); BUN (Urea Nitrogen) 12 mg/dL (9.8-20.1); Calc. Creatinine Clearance 71 mL/min (70-130); Calcium 9.5 mg/dL (7.8-10.44); Carbon Dioxide 35 mmol/L (23-31); Chloride 89 mmol/L (98-107); Glucose 91 mg/dL (80-115); Sodium 132 mmol/L (136-145)
[2021-05-22] MEDS: Furosemide 20 MG/2 ML VIAL SLOW IVP SCH (06:38)
[2021-05-22] MEDS: Acetaminophen/Codeine 30-300mg Tablet PO PRN ×2 (06:39→18:56)
[2021-05-22] MEDS: Budesonide 0.5 MG/2 ML NEB NEB SCH ×2 (07:03→19:21)
[2021-05-22] MEDS: Arformoterol 15 MCG/2 ML NEB NEB SCH ×2 (07:03→19:20)
[2021-05-22] MEDS: predniSONE 20 MG TAB PO SCH (09:16)
[2021-05-22] MEDS: Doxycycline 100 MG CAP PO SCH ×2 (09:16→20:10)
[2021-05-22] MEDS: Enoxaparin Sodium 40 MG/0.4 ML SYRINGE SC SCH (09:16)
[2021-05-22] MEDS: Saccharomyces boulardii 250 MG CAP PO SCH (09:17)
[2021-05-22] MEDS: Venlafaxine HCl XR 150 MG CAP PO SCH (09:17)
[2021-05-22] MEDS: Fioricet 325/50/40 mg Tablet PO PRN (20:10)
[2021-05-23] MEDS: Arformoterol 15 MCG/2 ML NEB NEB SCH ×2 (07:12→19:06)
[2021-05-23] MEDS: Budesonide 0.5 MG/2 ML NEB NEB SCH ×2 (07:13→19:08)
[2021-05-23] MEDS: Doxycycline 100 MG CAP PO SCH ×2 (08:45→21:36)
[2021-05-23] MEDS: Saccharomyces boulardii 250 MG CAP PO SCH (08:45)
[2021-05-23] MEDS: Enoxaparin Sodium 40 MG/0.4 ML SYRINGE SC SCH (08:45)
[2021-05-23] MEDS: predniSONE 20 MG TAB PO SCH (08:45)
[2021-05-23] MEDS: Multivitamin W/ Minerals 1 TAB PO SCH (08:45)
[2021-05-23] MEDS: Venlafaxine HCl XR 150 MG CAP PO SCH (08:46)
[2021-05-23] MEDS ORDERED: Docusate 100 MG CAP PO SCH (10:15)
[2021-05-23] MEDS ORDERED: Polyethylene Glycol 3350 17 GM Packet PO SCH (10:15)
[2021-05-23] MEDS: Fioricet 325/50/40 mg Tablet PO PRN (11:01)
[2021-05-23] MEDS: Docusate 100 MG CAP PO SCH (21:36)
[2021-05-24] MEDS: Acetaminophen/Codeine 30-300mg Tablet PO PRN ×2 (00:26→21:33)
[2021-05-24] MEDS: Budesonide 0.5 MG/2 ML NEB NEB SCH ×2 (07:04→18:48)
[2021-05-24] MEDS: Arformoterol 15 MCG/2 ML NEB NEB SCH ×2 (07:04→18:46)
[2021-05-24] MEDS: Doxycycline 100 MG CAP PO SCH ×2 (10:01→21:30)
[2021-05-24] MEDS: Enoxaparin Sodium 40 MG/0.4 ML SYRINGE SC SCH (10:02)
[2021-05-24] MEDS: Venlafaxine HCl XR 150 MG CAP PO SCH (10:02)
[2021-05-24] MEDS: predniSONE 20 MG TAB PO SCH (10:02)
[2021-05-24] MEDS: Multivitamin W/ Minerals 1 TAB PO SCH (10:02)
[2021-05-24] MEDS: Saccharomyces boulardii 250 MG CAP PO SCH (10:02)
[2021-05-24] MEDS: Polyethylene Glycol 3350 17 GM Packet PO SCH (10:02)
[2021-05-24] MEDS: Docusate 100 MG CAP PO SCH ×2 (10:03→21:30)
[2021-05-24] MEDS: Fioricet 325/50/40 mg Tablet PO PRN (13:17)
[2021-05-25] MEDS: Arformoterol 15 MCG/2 ML NEB NEB SCH ×2 (07:03→19:42)
[2021-05-25] MEDS: Budesonide 0.5 MG/2 ML NEB NEB SCH ×2 (07:03→19:42)
[2021-05-25] MEDS: Saccharomyces boulardii 250 MG CAP PO SCH (09:48)
[2021-05-25] MEDS: Polyethylene Glycol 3350 17 GM Packet PO SCH (09:48)
[2021-05-25] MEDS: Docusate 100 MG CAP PO SCH ×2 (09:48→21:41)
[2021-05-25] MEDS: Doxycycline 100 MG CAP PO SCH ×2 (09:48→21:41)
[2021-05-25] MEDS: Multivitamin W/ Minerals 1 TAB PO SCH (09:48)
[2021-05-25] MEDS: Enoxaparin Sodium 40 MG/0.4 ML SYRINGE SC SCH (09:48)
[2021-05-25] MEDS: Venlafaxine HCl XR 150 MG CAP PO SCH (09:48)
[2021-05-25] MEDS: predniSONE 20 MG TAB PO SCH (09:48)
[2021-05-25 12:51] LABS: SARS-CoV-2 PCR by NAA Not Detected (NotDetected)
[2021-05-25 13:24] VITALS: BMI 21.7
[2021-05-25] MEDS: Acetaminophen/Codeine 30-300mg Tablet PO PRN (21:40)
[2021-05-25] MEDS: Fioricet 325/50/40 mg Tablet PO PRN (22:40)
[2021-05-26] MEDS: Arformoterol 15 MCG/2 ML NEB NEB SCH ×2 (08:00→19:54)
[2021-05-26] MEDS: Budesonide 0.5 MG/2 ML NEB NEB SCH ×2 (08:03→19:53)
[2021-05-26] MEDS: Polyethylene Glycol 3350 17 GM Packet PO SCH (09:39)
[2021-05-26] MEDS: predniSONE 20 MG TAB PO SCH (09:39)
[2021-05-26] MEDS: Enoxaparin Sodium 40 MG/0.4 ML SYRINGE SC SCH (09:39)
[2021-05-26] MEDS: Doxycycline 100 MG CAP PO SCH (09:39)
[2021-05-26] MEDS: Multivitamin W/ Minerals 1 TAB PO SCH (09:40)
[2021-05-26] MEDS: Saccharomyces boulardii 250 MG CAP PO SCH (09:40)
[2021-05-26] MEDS: Docusate 100 MG CAP PO SCH (09:40)
[2021-05-26] MEDS: Venlafaxine HCl XR 150 MG CAP PO SCH (09:40)
[2021-05-26 15:03] VITALS: TEMP 98.6
[2021-05-26 15:56] VITALS: BP 171/98
[2021-05-26] MEDS: Acetaminophen/Codeine 30-300mg Tablet PO PRN (19:38)
[2021-05-27] MEDS ORDERED: predniSONE 20 MG TAB PO SCH (08:00)
== END 2021-05-26 20:28 | disposition hospice, home (50) | DRG 193 ==
LOC: ERS 13:10 → ERHOLD 15:57 → IMCU/EMU 20:46
PROVIDERS: ADMIT Family Medicine; ATTEND Internal Medicine
PROC: 5A09457 Assistance with Respiratory Ventilation, 24-96 Consecutive Hours, Continuous Positive Airway Pressure (ICD-10-PCS; principal; 2021-05-17)
DX: J18.9 Pneumonia, unspecified organism (principal); J96.21 Acute and chronic respiratory failure with hypoxia; J96.22 Acute and chronic respiratory failure with hypercapnia; I50.33 Acute on chronic diastolic (congestive) heart failure; J44.1 Chronic obstructive pulmonary disease with (acute) exacerbation; J44.0 Chronic obstructive pulmonary disease with (acute) lower respiratory infection; E44.0 Moderate protein-calorie malnutrition; Z20.822 Contact with and (suspected) exposure to COVID-19; I27.20 Pulmonary hypertension, unspecified; M41.9 Scoliosis, unspecified; M81.0 Age-related osteoporosis without current pathological fracture; E78.5 Hyperlipidemia, unspecified; F32.A Depression, unspecified; F41.9 Anxiety disorder, unspecified; G43.909 Migraine, unspecified, not intractable, without status migrainosus; M19.90 Unspecified osteoarthritis, unspecified site; Z87.891 Personal history of nicotine dependence; Z88.0 Allergy status to penicillin; Z79.51 Long term (current) use of inhaled steroids; Z99.81 Dependence on supplemental oxygen; Q85.00 Neurofibromatosis, unspecified; Z85.3 Personal history of malignant neoplasm of breast; Z85.41 Personal history of malignant neoplasm of cervix uteri; Z92.3 Personal history of irradiation; Z90.49 Acquired absence of other specified parts of digestive tract; Z98.51 Tubal ligation status; Z68.21 Body mass index [BMI] 21.0-21.9, adult
CPT/HCPCS: 36415; 36416; 36600; 70480; 71045; 80048; 80053; 82805; 83605; 83690; 83880; 84484; 85025; 93005; 93010; 94640; 94660; 96365; 96375; J0456; J0696; J1200; J1650; J1940; J2405; J2765; J2920; J2930; J3490; J7050; J7512; J7620; J7626; U0002; U0003; U0005